=== PATIENT | male | born 1960 ===

== ENCOUNTER 2023-05-23 09:04 | Emergency (ER) | payer BC, SELFPAY ==
[2023-05-23 09:24] LABS: Glucose, Whole Blood 85 mg/dL (60-115)
[2023-05-23 09:47] VITALS: BMI 27.0
--- NOTE | 2023-05-23 09:56 | PC.NURSE ---
this morning pt was golfing alone at a local [employer], the green party behing him noticed he appared to be in distress, was stumbling, and finally collapsed. when the bystander green party got to the pt they rolled him over, found him to be having a difficult time breathing. EMS arrived on scene at 0825, pt was foaming at the mouth, incontinent, had agonal respirations, and was bradycardic in the 50s. an EKG was obtained, pt was found to be in a 3rd degree heart block. at 0846 pt lost pulses and CPR was initiated. pt was given 4 EPI in the field by [facility] [facility]. pt arrived [place] [facility] [place] 5 at 0905. pt ad a failed IO in his R tibia. a 20G in his LAC. pt was estimated to be approx 6ft tall. a bed weight measured the pt to be 90.2kg. pts skin is intact, there is no edema, bruising, open wounds or signs of trauma. there are no tattoos.
--- NOTE | 2023-05-23 10:00 | PC.NURSE ---
call placed to [facility] at 0910 [facility] accepted the pt. Spoke with Khushbu who will be calling back.
--- NOTE | 2023-05-23 10:01 | PC.NURSE ---
family made aware at 0954 - Dr. Gallo spoke with the pts . pt is a resident of [place] who was here visiting his daughter.
--- NOTE | 2023-05-23 10:02 | PC.NURSE ---
pt is not wearing any jewelry. pts wallet and cell phone were obtained from the pts belongings.
--- NOTE | 2023-05-23 10:04 | ED_ITS ---
HPI - CPR General Chief Complaint: Cardiac Arrest/CPR Stated Complaint: UNRESPONSIVE/CARDIAC ARREST Time Seen by Provider: 05/23/23 09:21 Source: EMS Mode of arrival: EMS Limitations: other (Unresponsive, cardiac arrest.) History of Present Illness HPI narrative: 63[place]year-[place] for [place] family member, patient was at the [employer] this morning witnessed holding his chest and falling down having seizure-like activity as per EMS, upon EMS arrival patient was in bradycardic, agonal breathing, unresponsive, with both stool and urine incontinence, of the patient arrested while transportation patient had Jc's airway, had 1 mg of epinephrine x4 by EMS and was transported to the hospital. On arrival patient was unresponsive, apneic, pulseless with PEA. Patient was initially intubated, CPR was continued, patient received 1 amp of epinephrine/1 amp bicarb/1 and of dextrose, pulses was restored then shortly patient became pulseless no cardiac activity on ultrasound, patient was pronounced at 09:20. Related Data Allergies Allergy/AdvReac Type Severity Reaction Status Date / Time Unable to Assess Allergy Verified 05/23/23 09:34 Review of Systems Review of Systems: Yes Unobtainable due to mental condition (Cardiac arrest) [facility] Social History Social History Advance Directives: No Physical Exam Vital Signs: Vital Signs: BMI result Body Mass Index 27.0 Apneic with respiratory rate of 0, asystole for General: Patient is unresponsive, no trauma noted. HEENT: No head injury or trauma, pupil is 4 mm fixed bilaterally. No neck step- off or deformity. Heart: Asystole with no cardiac sounds. Lungs: Intubated with equal bilateral air entry. Abdomen: Slightly distended, no ecchymosis, no deformity. Extremities: No trauma. Neuro: Unresponsive. Course Course Course Narrative: I spoke with the family/ over the phone and notified them, the case discussed with the medical detailist the case was decline by Dr. Layla Caruso with . Medical Decision Making Differential Diagnosis Differential Diagnoses: The differential diagnosis associated with the presentation includes (Cardiac arrest, trauma.) Lab Data MDM Lab Attestation statement: I reviewed the patient's lab results. Labs: Lab Results 09/02/23 Range/Units 09:09 POC Glucose 85 (60-115) mg/dL Discharge Plan Discharge Clinical Impression: Cardiac arrest Patient Disposition: Date/Time: 05/23/23 09:20
--- NOTE | 2023-05-23 12:00 | PC.NURSE ---
FAMILY STATES THEY WILL BE USING [facility] [phone]
--- NOTE | 2023-05-23 12:18 | PC.NURSE ---
BELONGINGS SEARCHED, NO KEYS WERE FOUND. [facility] IN [place] WAS CALLED, NO KEYS WERE FOUND IN HIS [employer]
== END 2023-05-23 12:51 | disposition expired ==
PROVIDERS: Emergency Provider Emergency Medicine
DX: I46.9 Cardiac arrest, cause unspecified (principal)
CPT/HCPCS: 82947; 99283; J0171